=== PATIENT | male | born 1955 | race Caucasian/White ===

== ENCOUNTER → 2018-09-19 | Outpatient (CLI) | payer BC | LOC: COL.RAD 09-18 08:00 | DX: M25.552 Pain in left hip (principal) | CPT/HCPCS: J3301; Q9967 ==

== ENCOUNTER → 2021-03-04 | Outpatient (CLI) | payer BC | LOC: COL.RAD 09:56 | DX: M25.552 Pain in left hip (principal) | CPT/HCPCS: J3301; Q9967 ==